=== PATIENT | female | born 1980 | race Caucasian/White ===

== ENCOUNTER 2019-03-29 22:11 | Emergency (ER) | payer OTHER ==
[2019-03-29 22:19] VITALS: BP 128/82; PULSE 90; TEMP 98.2; BMI 45.1
--- NOTE | 2019-03-29 23:34 | PDOC ---
History of Present Illness - General Chief Complaint: Injury Stated Complaint: LT SHOULDER INJURY Time Seen by Provider: 03/29/19 22:13 - History of Present Illness Initial Comments: 03/29/19 23:48 This otherwise healthy 38-year-old woman presents with a history of left shoulder injury sustained while playing soccer with her children about 5 hours prior to presentation. Patient states that she fell, striking posterolateral portion of the left shoulder. Since then, she has had pain with movement of the left shoulder joint. There was no head or neck injury and she denies loss of consciousness. No previous history of left upper extremity injury; she had 2 Tylenol tablets a few hours after the injury with minimal pain relief. She denies pain/paresthesia/numbness or weakness in the left arm. No shortness of breath or chest pain noted. No significant past medical history On no daily medications No known allergies Denies smoking/alcohol use/other recreational drug use Past History - Past Medical History Allergies/Adverse Reactions: Allergies Allergy/AdvReac Type Severity Reaction Status Date / Time No Known Allergies Allergy Unverified 03/29/19 22:13 Home Medications: Ambulatory Orders Diclofenac Sodium [Voltaren -] 75 mg PO BID PRN #20 tablet. 03/29/19 COPD: No - Psycho Social/Smoking Cessation Hx Smoking History: Never smoked Review of Systems - Review of Systems Able to Perform ROS?: Yes Comments:: 12 point review of systems is negative except for what is noted in the history of present illness *Physical Exam - Vital Signs Last Vital Signs Temp Pulse Resp BP Pulse Ox 98.2 F 90 16 128/82 100 03/29/19 22:15 03/29/19 22:15 03/29/19 22:15 03/29/19 22:15 03/29/19 22:15 - Physical Exam Comments: GENERAL: Adult female, alert and oriented x3, no acute distress HEAD: Normal with no signs of trauma. EYES: PERRLA, EOMI, sclera anicteric, conjunctiva clear. NECK: Normal range of motion,non tender, supple without lymphadenopathy, JVD, or masses. LUNGS: Breath sounds equal, clear to auscultation bilaterally. No wheezes, and no crackles. CHEST WALL: No crepitus, tenderness, or deformity of the clavicles; no rib tenderness or deformities EXTREMITIES: Left shoulderprominent, tender AC joint; no tenderness or deformity of the proximal humerus; full ROM present at humeral glenoid joint ( limited somewhat by pain); distal left upper extremity normal without edema/tenderness/deformity Remainder of the extremity exam is normal NEUROLOGICAL: Cranial nerves II through XII grossly intact. Normal speech. No focal neurological deficits. ED Treatment Course - RADIOLOGY Radiology Studies Ordered: Category Date Time Status SHOULDER-LEFT [RAD] Stat Radiology 03/29/19 22:30 Taken ED Progress Note - Progress Note Progress Note: This otherwise healthy 38-year-old woman presents with left shoulder injury sustained a few hours prior to presentation; no previous history of left shoulder pain or injury. Exam is noted. PGU negative Left shoulder x-ray performed: Preliminary interpretation by meincreased distance between acromion process and distal end of the clavicle consistent with AC separation. No fracture or dislocation evident Results discussed with the patient. Although this appears to be low-grade separation (sprain versus tear) she should follow-up with an orthopedist. Patient does not currently have an orthopedist but thinks that she may be able to get a referral from health insurance coverage. She will also be given Dr. Andre's referral information (group on for service consult). Meanwhile, sling placed on her left upper extremity. She should keep this in place until seen by an orthopedist. Diclofenac 75 mg to be taken twice a day as needed for pain (with food) can be alternated with Tylenol as needed for pain control. He should return to the emergency room if she has severe pain or develops weakness/ numbness/paresthesias in her left arm. Discharge - Discharge Information Problems reviewed: Yes Clinical Impression/Diagnosis: shoulder Condition: Stable Disposition: HOME - Additional Discharge Information Prescriptions: Diclofenac Sodium [Voltaren -] 75 mg PO BID PRN #20 tablet.dr PATEL Reason: Pain - Follow up/Referral Referrals: Olivia Lux [Primary Care Provider] - Connor Andre MD [Staff Physician] - 3 days - Patient Discharge Instructions Patient Printed Discharge Instructions: AC Joint Separation Additional Instructions: Keep sling in place until seen by orthopedist Ice to top of left shoulder (15 minutes on/15 minutes off) several times a day for the next 48 hours Elevate upper body when sleeping for the next 2 to 3 days Diclofenac 75 mg twice a day alternating with Tylenol as needed for pain Follow-up with orthopedist (Dr. Andre or another as per your insurance) within the next 5 days Return to ER if you have severe pain in shoulder or weakness/numbness in left arm - Post Discharge Activity
== END 2019-03-29 23:53 | disposition home or self-care (01) ==
LOC: FER 22:11
DX: S43.102A Unspecified dislocation of left acromioclavicular joint, initial encounter (principal); W18.39XA Other fall on same level, initial encounter; Y93.66 Activity, soccer; Y92.322 Soccer field as the place of occurrence of the external cause
CPT/HCPCS: 73030-TC-LT-FY; 81025; 99282-25